=== PATIENT | female | born 1990 | race Two or more races ===

== ENCOUNTER 2018-11-29 11:47 | Emergency (ER) | payer MEDICAID ==
[~2018-11-29] VITALS: Ht 167.6 cm; Wt 89.0 kg
[2018-11-29] MEDS ORDERED: MORPHINE SULFATE 4 MG/ML CPJ (NOT FOR IM USE) IV STA (13:07)
[2018-11-29] MEDS ORDERED: KETOROLAC 30MG/ML VIAL IV STA (13:07)
[2018-11-29 15:48] VITALS: BP 132/82
== END 2018-11-29 15:58 | disposition home or self-care (01) ==
LOC: ER 11:58
DX: M54.5 Low back pain (principal); J45.909 Unspecified asthma, uncomplicated
CPT/HCPCS: 96374; 96375; 99283; J1885; J2270